=== PATIENT | female | born 1980 | race Two or more races ===

== ENCOUNTER 2017-04-20 17:44 | Emergency (ER) | payer MEDICAID ==
[~2017-04-20] VITALS: Ht 165.1 cm; Wt 117.9 kg
[2017-04-20 18:15] VITALS: BP 120/88
[2017-04-20] MEDS ORDERED: HYDROcodone-ACET 5/325MG TAB PO ONE (20:00)
[2017-04-20] MEDS ORDERED: LIDOCAINE W/ EPINEPHRINE 2% INJ 20ML VIAL ONE (21:06)
== END 2017-04-20 21:43 | disposition home or self-care (01) ==
LOC: EDBD 17:44 → ER 17:51
DX: S01.01XA Laceration without foreign body of scalp, initial encounter (principal); S09.90XA Unspecified injury of head, initial encounter; Y08.89XA Assault by other specified means, initial encounter; Y93.89 Activity, other specified; Y99.8 Other external cause status; Y92.89 Other specified places as the place of occurrence of the external cause
CPT/HCPCS: 12002; 70450